=== PATIENT | female | born 1935 | race Caucasian/White ===

== ENCOUNTER 2017-01-25 20:32 | Inpatient (IN) | payer MEDICARE, OTHER ==
--- NOTE | 2017-01-28 15:35 | NUR ---
0102 - LEFT MESSAGE WITH SON PEGGY SEN TO CALL RN AT [facility].
--- NOTE | 2017-01-28 15:36 | NUR ---
1513 - REPORT CALLED TO FELIZ DOWD AT THE [facility]. PT WILL BE GOING TO ROOM [address] [place] [address]. LEFT NUMBER WITH FELIZ TO CALL RN FOR QUESTIONS.
--- NOTE | 2017-01-28 16:44 | NUR ---
1550 - PT LEFT FLOOR VIA STRETCHER ACCOMPANIED BY EMS. NO S/S OF DISTRESS.
[2017-01-31] MEDS ORDERED: FERROUS SULFAT325 MG PO (09:18)
[2017-01-31] MEDS ORDERED: LEXAPRO10 MG PO (09:18)
[2017-01-31] MEDS ORDERED: CALCIUM CARBON500 MG PO (09:18)
[2017-01-31] MEDS ORDERED: ACIDOPHILUS LACT1 GM PO (09:19)
[2017-01-31] MEDS ORDERED: VITAMIN D32000 UNI1 PO (09:30)
[2017-01-31] MEDS ORDERED: REQUIP1 MG PO (09:30)
[2017-01-31] MEDS ORDERED: AMBIEN5 MG PO (09:30)
[2017-01-31] MEDS ORDERED: HYDROCODON-ACE1 EAC4 PO (09:30)
[2017-01-31] MEDS ORDERED: ACETAMINOPHEN650 MG RC (09:31)
[2017-01-31] MEDS ORDERED: TYLENOL325 MG PO (09:31)
[2017-01-31] MEDS ORDERED: VANCOCIN HCL125 MG PO (09:32)
== END 2017-01-28 15:51 | DRG 372 ==
LOC: ER 20:32 → MED 23:32
PROVIDERS: ADMIT Internal Medicine
DX: A04.7 Enterocolitis due to Clostridium difficile (principal); N17.9 Acute kidney failure, unspecified; M33.20 Polymyositis, organ involvement unspecified; Q60.2 Renal agenesis, unspecified; I12.9 Hypertensive chronic kidney disease with stage 1 through stage 4 chronic kidney disease, or unspecified chronic kidney disease; N18.3 Chronic kidney disease, stage 3 (moderate); E87.6 Hypokalemia; E78.5 Hyperlipidemia, unspecified; G62.9 Polyneuropathy, unspecified; K59.00 Constipation, unspecified; F41.9 Anxiety disorder, unspecified; F32.9 Major depressive disorder, single episode, unspecified; E55.9 Vitamin D deficiency, unspecified; G47.00 Insomnia, unspecified; D63.1 Anemia in chronic kidney disease; M06.9 Rheumatoid arthritis, unspecified; Z88.1 Allergy status to other antibiotic agents; Z88.0 Allergy status to penicillin; Z88.8 Allergy status to other drugs, medicaments and biological substances; Z79.899 Other long term (current) drug therapy; R19.7 Diarrhea, unspecified
CPT/HCPCS: 36415; 87502; 96375; J1650

== ENCOUNTER 2017-01-25 20:32 | Emergency (ER) | payer MEDICARE, OTHER ==
[2017-01-31] MEDS ORDERED: CALCIUM CARBON500 MG PO (09:18)
[2017-01-31] MEDS ORDERED: LEXAPRO10 MG PO (09:18)
[2017-01-31] MEDS ORDERED: FERROUS SULFAT325 MG PO (09:18)
[2017-01-31] MEDS ORDERED: ACIDOPHILUS LACT1 GM PO (09:19)
[2017-01-31] MEDS ORDERED: AMBIEN5 MG PO (09:30)
[2017-01-31] MEDS ORDERED: REQUIP1 MG PO (09:30)
[2017-01-31] MEDS ORDERED: VITAMIN D32000 UNI1 PO (09:30)
[2017-01-31] MEDS ORDERED: HYDROCODON-ACE1 EAC4 PO (09:30)
[2017-01-31] MEDS ORDERED: TYLENOL325 MG PO (09:31)
[2017-01-31] MEDS ORDERED: ACETAMINOPHEN650 MG RC (09:31)
[2017-01-31] MEDS ORDERED: VANCOCIN HCL125 MG PO (09:32)
== END 2017-01-25 23:31 | disposition critical access hospital (66) ==
LOC: ER 20:32
DX: A09 Infectious gastroenteritis and colitis, unspecified (principal); E86.0 Dehydration; R05 Cough; R50.9 Fever, unspecified; I10 Essential (primary) hypertension; E78.5 Hyperlipidemia, unspecified; Z79.899 Other long term (current) drug therapy; Z88.2 Allergy status to sulfonamides; Z88.8 Allergy status to other drugs, medicaments and biological substances
CPT/HCPCS: 36415; 87502; 96361; 96365; 96375